=== PATIENT | female | born 1995 | race Caucasian/White ===

== ENCOUNTER 2017-07-27 20:25 | Inpatient (IN) | payer OTHER ==
[~2017-07-27] VITALS: Ht 157.5 cm; Wt 91.7 kg
[~2017-07-27 20:25] MED LIST: AMOX1TAB64 PO; BUPR75TA5 PO; QUET25TA5 PO
[2017-07-27 20:50] LABS: DAU SCREEN DISCLAIMER
[2017-07-27 21:13] LABS: HEMATOCRIT 45.1 % (34.6-47.8); HEMOGLOBIN 15.1 g/dL (11.7-16.4)
[2017-07-27 21:26] LABS: ASPARTATE AMINO TRANSFERASE 67 U/L (15-37); BLOOD UREA NITROGEN 8 mg/dL (7-18)
[2017-07-27 21:32] LABS: ACETAMINOPHEN < 2 mcg/mL (10-30)
[2017-07-27] MEDS ORDERED: ONDANSETRON ODT 4 MG ONE (23:58)
[2017-07-28] VITALS (7 sets, daily range): BP systolic 120–131; BP diastolic 79–88
[2017-07-28] MEDS ORDERED: ONDANSETRON ODT 4 MG PO ONE
[2017-07-28] MEDS ORDERED: ONDANSETRON ODT 4 MG PO PRN (04:30)
[2017-07-28] MEDS ORDERED: DOCUSATE 100 MG CAPSULE PO PRN (04:30)
[2017-07-28] MEDS ORDERED: ZIPRASIDONE 20 MG INJ IM PRN (04:30)
[2017-07-28] MEDS ORDERED: LORazepam 1MG TABLET PO PRN (04:30)
[2017-07-28] MEDS ORDERED: QUETIAPINE 25MG TABLET PO PRN (04:30)
[2017-07-28 06:37] LABS: HEMATOCRIT 42.4 % (34.6-47.8); HEMOGLOBIN 14.4 g/dL (11.7-16.4); WHITE BLOOD COUNT 7.2 x10^3/uL (4.5-13.2)
[2017-07-28 06:46] LABS: BLOOD UREA NITROGEN 7 mg/dL (7-18)
[2017-07-28 06:59] LABS: ASPARTATE AMINO TRANSFERASE 57 U/L (15-37)
[2017-07-28] MEDS ORDERED: NS + 40MEQ KCL 1,000 ML IV SCH (08:37)
[2017-07-28] MEDS ORDERED: POTASSIUM PHOSPHATE 44 MEQ in SODIUM CHLORIDE 0.9% 500 ML IV ONE (09:00)
[2017-07-28] MEDS ORDERED: POTASSIUM CHLORIDE 20 MEQ TAB.ER.PRT PO ONE (09:00)
[2017-07-28] MEDS: LORazepam 2 MG/ML, 1ML IVPush PRN ×2 (09:12→13:22)
[2017-07-28] MEDS: ENOXAPARIN 40 MG/0.4 ML SQ SCH (10:31)
[2017-07-28] MEDS ORDERED: L.E.T SOLUTION TP ONE (12:30)
[2017-07-28 14:32] LABS: BLOOD UREA NITROGEN 5 mg/dL (7-18)
[2017-07-28] MEDS ORDERED: VERA120C2 PO (15:40)
[2017-07-28] MEDS ORDERED: NORE-122 PO (15:40)
[2017-07-28] MEDS ORDERED: ESCI20TA10 PO (15:41)
[2017-07-28] MEDS ORDERED: CLON0.5T PO (15:43)
[2017-07-28] MEDS ORDERED: QUET25TA PO (15:45)
[2017-07-28] MEDS: SODIUM CHLORIDE 0.9% 1,000 ML IV SCH ×2 (17:04→23:11)
[2017-07-28 17:35] LABS: DAU SCREEN DISCLAIMER; HCG UR LOT HCG706132
[2017-07-28 17:57] LABS: HCG UR OBC PASS
[2017-07-28] MEDS: BACITRACIN OINT 500U/GM, 15 GM TP SCH (21:45)
[2017-07-29 00:58] VITALS: BP 118/82
[2017-07-29] MEDS: SODIUM CHLORIDE 0.9% 1,000 ML IV SCH ×3 (05:17→22:00)
[2017-07-29 06:12] LABS: HEMATOCRIT 37.4 % (34.6-47.8); HEMOGLOBIN 12.6 g/dL (11.7-16.4)
[2017-07-29 06:46] LABS: ASPARTATE AMINO TRANSFERASE 46 U/L (15-37); BLOOD UREA NITROGEN 2 mg/dL (7-18)
[2017-07-29 07:10] VITALS: BP 131/92
[2017-07-29 07:30] VITALS: BP 137/93
[2017-07-29] MEDS: ENOXAPARIN 40 MG/0.4 ML SQ SCH (10:44)
[2017-07-29] MEDS: BACITRACIN OINT 500U/GM, 15 GM TP SCH (10:46)
[2017-07-29 13:20] VITALS: BP 125/86
[2017-07-29] MEDS ORDERED: NEUTRA PHOS K 250 MG TABLET PO ONE (14:30)
[2017-07-29 19:15] VITALS: BP 120/87
[2017-07-30] MEDS: ACETAMINOPHEN 325 MG TABLET PO PRN ×2 (00:07→09:45)
[2017-07-30 01:00] VITALS: BP 118/79
[2017-07-30] MEDS: SODIUM CHLORIDE 0.9% 1,000 ML IV SCH ×2 (05:11→11:20)
[2017-07-30 05:46] LABS: HEMATOCRIT 38.5 % (34.6-47.8); HEMOGLOBIN 12.9 g/dL (11.7-16.4); WHITE BLOOD COUNT 6.5 x10^3/uL (4.5-13.2)
[2017-07-30 06:06] LABS: ASPARTATE AMINO TRANSFERASE 61 U/L (15-37); BLOOD UREA NITROGEN 3 mg/dL (7-18)
[2017-07-30 07:36] VITALS: BP 133/89
[2017-07-30] MEDS: ENOXAPARIN 40 MG/0.4 ML SQ SCH (09:45)
[2017-07-30 13:17] VITALS: BP 124/86
[2017-07-30 18:15] VITALS: BP 132/94
[2017-07-31 02:20] VITALS: BP 118/81
[2017-07-31 06:06] LABS: ASPARTATE AMINO TRANSFERASE 102 U/L (15-37); BLOOD UREA NITROGEN 6 mg/dL (7-18)
[2017-07-31 07:41] VITALS: BP 109/72
[2017-07-31] MEDS: ENOXAPARIN 40 MG/0.4 ML SQ SCH (10:36)
[2017-07-31 13:11] VITALS: BP 121/85
== END 2017-07-31 14:32 | disposition home or self-care (01) | DRG 918 ==
LOC: ED 23:51 → EDIP 23:58 → 2N 07-28 04:55 → 4EST 07-28 05:44 → OBSVTOIN 07-28 15:21
PROVIDERS: ADMIT Surgery; ATTEND Surgery
PROC: 0CQ0XZZ Repair Upper Lip, External Approach (ICD-10-PCS; principal; 2017-07-29)
DX: T43.292A Poisoning by other antidepressants, intentional self-harm, initial encounter (principal); R45.851 Suicidal ideations; E66.01 Morbid (severe) obesity due to excess calories; K76.0 Fatty (change of) liver, not elsewhere classified; S02.2XXA Fracture of nasal bones, initial encounter for closed fracture; T43.222A Poisoning by selective serotonin reuptake inhibitors, intentional self-harm, initial encounter; G43.909 Migraine, unspecified, not intractable, without status migrainosus; F41.1 Generalized anxiety disorder; F43.21 Adjustment disorder with depressed mood; G40.409 Other generalized epilepsy and epileptic syndromes, not intractable, without status epilepticus; E86.0 Dehydration; E87.6 Hypokalemia; E83.39 Other disorders of phosphorus metabolism; R00.0 Tachycardia, unspecified; S01.511A Laceration without foreign body of lip, initial encounter; X58.XXXA Exposure to other specified factors, initial encounter; F12.20 Cannabis dependence, uncomplicated; Z91.5 Personal history of self-harm; Z88.8 Allergy status to other drugs, medicaments and biological substances; Z56.0 Unemployment, unspecified; Z79.899 Other long term (current) drug therapy; Z81.8 Family history of other mental and behavioral disorders; Y93.89 Activity, other specified; Y92.89 Other specified places as the place of occurrence of the external cause; Y99.8 Other external cause status
CPT/HCPCS: 36415; 70450; 70486; 80048; 80053; 80074; 80307; 80329; 81025; 82550; 83735; 84100; 84443; 84703; 85025; 93005; 99285; G0378; J1650; Q0162; G0479; G0480; J2060; J3480; J7030; J7040

== ENCOUNTER 2017-08-01 17:11 | Emergency (ER) | payer OTHER ==
[~2017-08-01] VITALS: Ht 160 cm; Wt 90.2 kg
[~2017-08-01 17:11] MED LIST changes: +CLON0.5T PO; +ESCI20TA10 PO; +NORE-122 PO; +QUET25TA PO; +VERA120C2 PO
[2017-08-01 17:15] VITALS: BP 126/90
== END 2017-08-01 18:09 | disposition home or self-care (01) ==
LOC: ED 18:02
DX: S01.511D Laceration without foreign body of lip, subsequent encounter (principal); X58.XXXD Exposure to other specified factors, subsequent encounter
CPT/HCPCS: 99281